=== PATIENT | female | born 2000 ===

== ENCOUNTER 2021-02-12 16:49 | Emergency (ER) | payer SELFPAY ==
[2021-02-12 18:23] VITALS: BP 118/78; PULSE 85; RESP 18; TEMP 36.8; O2SAT 97; BMI 30.7
== END 2021-02-12 20:00 | disposition left against medical advice (07) ==
PROVIDERS: Emergency Provider Emergency Medicine
DX: G43.909 Migraine, unspecified, not intractable, without status migrainosus (principal)
CPT/HCPCS: 99281; 99282